=== PATIENT | female | born 1955 | race American Indian/Alaskan Native ===

== ENCOUNTER 2021-04-21 20:06 | Observation (INO) | payer MEDICARE ==
[2021-04-21] MEDS ORDERED: ASPIRIN 325 MG TAB PO ONE (22:26)
--- NOTE | 2021-04-21 23:35 | XRay Report ---
CHEST 2 VIEWS INDICATION / CLINICAL INFORMATION: chest pain. COMPARISON: None available. FINDINGS: SUPPORT DEVICES: Left central line projects over the superior vena cava. HEART / MEDIASTINUM: No significant abnormality. LUNGS / PLEURA: No significant pulmonary or pleural abnormality. No pneumothorax. ADDITIONAL FINDINGS: No significant additional findings. IMPRESSION: 1. No acute findings. Signer Name: Zenobia Jo MD Signed: 04/21/2021 11:31 PM Workstation Name: [id number]
[2021-04-22 00:35] LABS: Basophils % (Auto) 0.5 % (0.0-1.8); Eosinophils # (Auto) 0.2 K/mm3 (0.0-0.4); Eosinophils % (Auto) 3.2 % (0.0-4.3); Hematocrit 27.8 % (30.3-42.9); Hemoglobin 9.6 gm/dl (10.1-14.3); Lymphocytes % (Auto) 16.4 % (13.4-35.0); Mean Corpuscular HGB Conc 35 % (30-34); Mean Corpuscular Volume 105 fl (79-97); Monocytes # (Auto) 0.4 K/mm3 (0.0-0.8); Monocytes % (Auto) 6.3 % (0.0-7.3); Platelet Count 334 K/mm3 (140-440); Red Blood Count 2.64 M/mm3 (3.65-5.03); Red Cell Distribution Width 19.6 % (13.2-15.2)
[2021-04-22 00:48] LABS: INR 1.13 (0.87-1.13)
[2021-04-22 00:49] LABS: Partial Thromboplastin Time 35.9 Sec. (24.2-36.6)
[2021-04-22 00:54] LABS: Albumin 3.2 g/dL (3.9-5); Calcium 9.2 mg/dL (8.4-10.2)
[2021-04-22] MEDS ORDERED: ACETAMINOPHEN 500 MG TAB PO ONE (01:56)
[2021-04-22 03:17] LABS: Chol/HDL Ratio 3.59 %
[2021-04-22] MEDS ORDERED: SODIUM CHLORIDE 0.9% 1000 ML 1,000 ML IV ONE (06:09)
[2021-04-22] MEDS ORDERED: PANTOPRAZOLE 40 MG INJ IV ONE (06:09)
[2021-04-22 06:31] LABS: Hematocrit 27.1 % (30.3-42.9); Hemoglobin 8.9 gm/dl (10.1-14.3)
[2021-04-22] MEDS ORDERED: VANCOMYCIN 1,250 MG in SODIUM CHLORIDE 0.9% 250ML 250 ML IV ONE (06:33)
[2021-04-22] MEDS ORDERED: cefTRIAXone/NS 2 GM/100 ML 2 GM/100 ML BAG IV ONE (06:34)
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
[2021-04-22] MEDS ORDERED: SODIUM CHLORIDE 0.9% 500 ML 500 ML IV ONE (06:55)
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
[2021-04-22] MEDS ORDERED: NALOXONE 0.4 MG/1 ML INJ IV PRN (08:34)
[2021-04-22] MEDS ORDERED: ACETAMINOPHEN 325 MG TAB PO PRN (08:34)
[2021-04-22] MEDS ORDERED: DEXTROSE 50% IN WATER (25GM) 50 ML SYRINGE IV PRN (08:34)
[2021-04-22] MEDS ORDERED: oxyCODONE /ACETAMINOPHEN 5-325MG TAB PO PRN (08:34)
[2021-04-22] MEDS ORDERED: ONDANSETRON 4 MG/2 ML INJ IV PRN (08:34)
--- NOTE | 2021-04-22 08:37 | History and Physical Report ---
History of Present Illness Date of examination: 04/22/21 Date of admission: 04/22/21 Chief complaint: Black tarry stool. No light at home for wound vac History of present illness: Patient is a 65-year-old female with history of hypertension, Recent COVID 19 placed on on Xarelto, COPD, JAYJAY, history of anemia, and DM 2 with a recent left diabetic heel ulcer status post surgical debridement 1.5 weeks ago presents at the advice of her wound care nurse for inability to care for self and also unable to use her Wound vac as She says that yesterday her electricity/lights were turned off at her home. Her hx is all over the place. Per ED notes "Her nurse saw her yesterday to apply a wound VAC and told her that she needs to go to the hospital given that she cannot care for herself in her home without electricity. She says she is on oral antibiotics but does not remember the name. When prompted further, she says that she has been experiencing intermittent palpitations for the last week. For the past 2 or 3 days she has had dark tarry stools. Other than the palpitations and noticing dark tarry stools she denies any other symptoms or complaints including fever/chills, headache, vision change, neck pain, chest pain, shortness of breath, cough, diaphoresis, abdominal pain, nausea/vomiting, dysuria, back pain, focal weakness, sensory changes, or any other complaints. She denies any recent new redness to her left lower extremity wound/foot." I spoke with the home health nurse who says the patient does have history of anemia secondary to blood loss. The patient also tells me that she was started on iron pills recently. Both her know the nurse early childhood teacher assistant at home could tell me she has had an endoscopy before. Review of her records from [place] shows that she was admitted for right PICC line pain as well as not feeling well and worsening blurry vision and left leg swelling. During the hospitalization she was diagnosed with COVID-19 and was treated with steroids. Left lower extremity wound where she had a debridement and a partial calcanectomy done 03/27/2021. She was treated for hypoxic respiratory failure and also Covid related hypercoagulab le state for which she was suspected to be on Xarelto for 7 days. During hospitalization the patient was noted to have D-dimers that were consistently below 3000 per the note. During her process in the ER she did report that she had some dark stools. Per the ER doctors documentation rectal exam which was done under viscose department worker was negative. But patient was noted to be anemic with an almost 1 g drop in hemoglobin while in the ER. We been asked to admit the patient for further evaluation and management. Past History Past Medical History: CAD, COPD, diabetes, hypertension, hyperlipidemia, hypothyroidism, other (jayjay, Left lower ext osteomylitis, anxiety, MDD) Past Surgical History: Other (left foot debridement and calcanectomy) Social history: , lives with family, full code Family history: no significant family history Medications and Allergies Allergies Allergy/AdvReac Type Severity Reaction Status Date / Time bees Allergy Unknown Uncoded 04/21/21 22:23 ants AdvReac Unknown Uncoded 04/21/21 22:23 Review of Systems All systems: negative Constitutional: fatigue, lethargy Musculoskeletal: other (LEFT FOOT ULCER PAIN) Integumentary: redness, wounds (LEFT FOOT) Exam - Physical Exam Narrative exam: VITAL SIGNS: Reviewed. GENERAL: The patient appears normally developed, Vital signs as documented. HEAD: No signs of head trauma. EYES: Pupils are equal. Extraocular motions intact. EARS: Hearing grossly intact. MOUTH: Oropharynx is normal. NECK: No adenopathy, no JVD. CHEST: Chest with clear breath sounds bilaterally. No wheezes, rales, or rhonchi. CARDIAC: Regular rate and rhythm. S1 and S2, without murmurs, gallops, or rubs. VASCULAR: No Edema. Peripheral pulses normal and equal in all extremities. ABDOMEN: Soft, non tender and non distended. No rebound or guarding, and no masses palpated. Bowel Sounds normal. MUSCULOSKELETAL: Good range of motion of all major joints. Extremities without clubbing, cyanosis. Patient does have edema to the left lower extremity with chronic changes to the left lower extremity there is a large 5 cm wound at the base of the heel of the left foot. Dressing over the ankle. NEUROLOGIC EXAM: Alert and oriented x 3 No focal sensory or strength deficit s. Speech normal. Follows commands. PSYCHIATRIC: Mood normal. SKIN: detail exam as documented in skin assessment - Constitutional Vitals: Temp Pulse Resp BP Pulse Ox 97.3 F L 95 H 16 139/98 96 04/21/21 22:23 04/22/21 07:31 04/22/21 07:31 04/22/21 07:31 04/22/21 07:31 HEART Score - HEART Score Troponin: Troponin T 0.035 ng/mL (0.00-0.029) H 04/22/21 04:27 Results - Labs CBC & Chem 7: 04/22/21 06:19 04/22/21 00:00 Labs: Laboratory Last Values WBC 6.4 K/mm3 (4.5-11.0) 04/22/21 00:00 RBC 2.64 M/mm3 (3.65-5.03) L 04/22/21 00:00 Hgb 8.9 gm/dl (10.1-14.3) L 04/22/21 06:19 Hct 27.1 % (30.3-42.9) L 04/22/21 06:19 MCV 105 fl (79-97) H 04/22/21 00:00 MCH 37 pg (28-32) H 04/22/21 00:00 MCHC 35 % (30-34) H 04/22/21 00:00 RDW 19.6 % (13.2-15.2) H 04/22/21 00:00 Plt Count 334 K/mm3 (140-440) 04/22/21 00:00 Lymph % (Auto) 16.4 % (13.4-35.0) 04/22/21 00:00 [place] % (Auto) 6.3 % (0.0-7.3) 04/22/21 00:00 Eos % (Auto) 3.2 % (0.0-4.3) 04/22/21 00:00 Baso % (Auto) 0.5 % (0.0-1.8) 04/22/21 00:00 Lymph # (Auto) 1.0 K/mm3 (1.2-5.4) L 04/22/21 00:00 [place] # (Auto) 0.4 K/mm3 (0.0-0.8) 04/22/21 00:00 Eos # (Auto) 0.2 K/mm3 (0.0-0.4) 04/22/21 00:00 Baso # (Auto) 0.0 K/mm3 (0.0-0.1) 04/22/21 00:00 Seg Neutrophils % 73.6 % (40.0-70.0) H 04/22/21 00:00 Seg Neutrophils # 4.7 K/mm3 (1.8-7.7) 04/22/21 00:00 PT 15.0 Sec. (12.2-14.9) H 04/22/21 00:00 INR 1.13 (0.87-1.13) 04/22/21 00:00 APTT 35.9 Sec. (24.2-36.6) 04/22/21 00:00 Sodium 133 mmol/L (137-145) L 04/22/21 00:00 Potassium 4.6 mmol/L (3.6-5.0) 04/22/21 00:00 Chloride 93.9 mmol/L (98-107) L 04/22/21 00:00 Carbon Dioxide 26 mmol/L (22-30) 04/22/21 00:00 Anion Gap 18 mmol/L 04/22/21 00:00 BUN 22 mg/dL (7-17) H 04/22/21 00:00 Creatinine 1.1 mg/dL (0.6-1.2) 04/22/21 00:00 Estimated GFR 50 ml/min 04/22/21 00:00 BUN/Creatinine Ratio 20 % 04/22/21 00:00 Glucose 434 mg/dL (65-100) H 04/22/21 00:00 Calcium 9.2 mg/dL (8.4-10.2) 04/22/21 00:00 Magnesium 2.00 mg/dL (1.7-2.3) 04/22/21 06:19 Total Bilirubin 0.40 mg/dL (0.1-1.2) 04/22/21 00:00 AST 19 units/L (5-40) 04/22/21 00:00 ALT 15 units/L (7-56) 04/22/21 00:00 Alkaline Phosphatase 129 units/L (35-129) 04/22/21 00:00 Troponin T 0.035 ng/mL (0.00-0.029) H 04/22/21 04:27 Total Protein 7.7 g/dL (6.3-8.2) 04/22/21 00:00 Albumin 3.2 g/dL (3.9-5) L 04/22/21 00:00 Albumin/Globulin Ratio 0.7 % 04/22/21 00:00 Triglycerides 141 mg/dL (2-149) 04/22/21 02:05 Cholesterol 151 mg/dL (50-199) 04/22/21 02:05 LDL Cholesterol Direct 96 mg/dL (50-130) 04/22/21 02:05 HDL Cholesterol 42 mg/dL (40-59) 04/22/21 02:05 Cholesterol/HDL Ratio 3.59 % 04/22/21 02:05 Lipase 31 units/L (13-60) 04/22/21 06:19 Plasma/Serum Alcohol < 0.01 % (0-0.07) 04/22/21 06:19 Blood Type A POSITIVE 04/22/21 00:00 Antibody Screen Negative 04/22/21 00:00 Assessment and Plan Assessment and plan: Patient is a 65-year-old female with history of hypertension, Recent COVID 19 placed on on Xarelto, COPD, JAYJAY, history of anemia, and DM 2 with a recent left diabetic heel ulcer status post surgical debridement 1.5 weeks ago presents at the advice of her wound care nurse for inability to care for self and also unable to use her Wound vac as She says that yesterday her electricity/lights were turned off at her home. Her hx is all over the place. Per ED notes "Her nurse saw her yesterday to apply a wound VAC and told her that she needs to go to the hospital given that she cannot care for herself in her home without electricity. She says she is on oral antibiotics but does not remember the name. When prompted further, she says that she has been experiencing intermittent palpitations for the last week. For the past 2 or 3 days she has had dark tarry stools. Other than the palpitations and noticing dark tarry stools she denies any other symptoms or complaints including fever/chills, headache, vision change, neck pain, chest ugo n, shortness of breath, cough, diaphoresis, abdominal pain, nausea/vomiting, dysuria, back pain, focal weakness, sensory changes, or any other complaints. She denies any recent new redness to her left lower extremity wound/foot." I spoke with the home health nurse who says the patient does have history of anemia secondary to blood loss. The patient also tells me that she was started on iron pills recently. Both her know the nurse early childhood teacher assistant at home could tell me she has had an endoscopy before. Review of her records from [place] shows that she was admitted for right PICC line pain as well as not feeling well and worsening blurry vision and left leg swelling. During the hospitalization she was diagnosed with COVID-19 and was treated with steroids. Left lower extremity wound where she had a debridement and a partial calcanectomy done 03/27/2021. She was treated for hypoxic respiratory failure and also Covid related hypercoagulable state for which she was suspected to be on Xarelto for 7 days. During hospitalization the patient was noted to have D-dimers that were consistently below 3000 per the note. During her process in the ER she did report that she had some dark stools. Per the ER doctors documentation rectal exam which was done under viscose department worker was negative. But patient was noted to be anemic with an almost 1 g drop in hemoglobin while in the ER. We been asked to admit the patient for further evaluation and management. Diabetic foot ulcer with osteomyelitis of the left foot Diabetes mellitus with hyperglycemia Anemia questionable recent GI bleed Social issues including-no electricity at home preventing the use of wound VAC Hypertension Hyperlipidemia JAYJAY unknown if patient is on CPAP at home Recent Covid pneumonia with hypoxic respiratory failure the latter now resolved Hypothyroidism Anemia of chronic inflammation Constipation Hyperlipidemia GERD MDD/anxiety Plan Admit to [facility] as patient has history of recent Covid Isolation with Covid Continue insulin management with diabetes Discussed with nursing staff to obtain home medication list I have been able to see some medication from [place] and will restart dose Continue Synthroid we will hold Xarelto at this time Cardiology consultation they were very instrumental in obtaining this record from [place] to identify the patient did not have a history of A. fib GI consulted anticipating endoscopy in a.m. We will redo Covid testing [employer] worker/case management consulted to assist with social issues noted above Wound care consult Reapply wound VAC Monitor H&H DVT and GI prophylaxis Plan discussed with the patient in detail Advance Directives: Yes Plan of care discussed with patient/family: Yes
[2021-04-22] MEDS: SENNOSIDES 8.6 MG TAB PO SCH ×2 (09:47→23:54)
[2021-04-22] MEDS: INSULIN LISPRO 100 UNIT/ML SUB-Q SCH ×3 (09:47→18:04)
[2021-04-22] MEDS ORDERED: PANTOPRAZOLE 40 MG INJ IV SCH (10:00)
--- NOTE | 2021-04-22 11:19 | Consultation ---
History of Present Illness Consult date: 04/22/21 Consult reason: atrial fibrillation History of present illness: This is a 65-year old woman with a history of Insulin dependent diabetes mellitus with a left diabetic heel ulcer, chronic osteomyelitis and is status post surgical debridement 3 weeks ago at [place]. Review of records shows that during her hospitalization at [place], she test positive for COVID. CT scan was negative for PE but on discharged she was prescribed a short course of Xarelto for prophylaxis. Co-morbidities includes chronic anemia, and hypothyroidism. There is no prior cardiac history. An echocardiogram done a year ago reports a well preserved left ventricular systolic function, ejection fraction 50-55%. Patient states yesterday her home health nurse came out for wound care but was found to have no electricity or food. The home health nurse recommended the patient go to the emergency department given her social issues and inability to care for herself. Initial labs shows uncontrolled diabetes, glucose 434. HCT 27.1 and mild elevation of troponin. There are no complaints of chest pain, no unusual shortness of breath, and no palpitations. An ECG is mild sinus tachycardia with LVH. There is no evidence of atrial fibrillation. Past History Past Medical History: anemia, diabetes, hypertension, hypothyroidism Past Surgical History: Other (left heel ulcer s/p debridement) Medications and Allergies Allergies Allergy/AdvReac Type Severity Reaction Status Date / Time bees Allergy Unknown Uncoded 04/21/21 22:23 ants AdvReac Unknown Uncoded 04/21/21 22:23 Active Meds: Active Medications Acetaminophen (Acetaminophen 325 Mg Tab) 650 mg PO Q4H PRN PRN Reason: Pain MILD(1-3)/Fever >100.5/REYES Dextrose (Dextrose 50% In Water (25gm) 50 Ml Syringe) 50 ml IV Q30MIN PRN; Protocol PRN Reason: Hypoglycemia Insulin Human Lispro (Insulin Lispro 100 Unit/Ml) 0 unit SUB-Q Q6HR ON LICENSE OF [facility]; Protocol Last Admin: 04/22/21 09:47 Dose: 8 unit Documented by: Naloxone HCl (Naloxone 0.4 Mg/1 Ml Inj) 0.1 mg IV Q2MIN PRN PRN Reason: Res Rate </= 8 or 02 SAT < 92% Ondansetron HCl (Ondansetron 4 Mg/2 Ml Inj) 4 mg IV Q8H PRN PRN Reason: Nausea And Vomiting Oxycodone/Acetaminophen (Oxycodone /Acetaminophen 5-325mg Tab) 1 tab PO Q6H PRN PRN Reason: Pain, Moderate (4-6) Pantoprazole Sodium (Pantoprazole 40 Mg Inj) 40 mg IV BID ON LICENSE OF [facility] Senna (Sennosides 8.6 Mg Tab) 8.6 mg PO Q12HR ON LICENSE OF [facility] Last Admin: 04/22/21 09:47 Dose: 8.6 mg Documented by: Sodium Chloride (Sodium Chloride 0.9% 10 Ml Flush Syringe) 10 ml IV BID ON LICENSE OF [facility] Last Admin: 04/22/21 09:40 Dose: 10 ml Documented by: Sodium Chloride (Sodium Chloride 0.9% 10 Ml Flush Syringe) 10 ml IV PRN PRN PRN Reason: LINE FLUSH Review of Systems Cardiovascular: no chest pain, no palpitations, no shortness of breath Physical Examination Vital Signs Temp Pulse Resp BP Pulse Ox 97.3 F L 130 H 22 96/53 95 04/21/21 22:23 04/21/21 22:23 04/21/21 22:23 04/21/21 22:23 04/21/21 22:23 General appearance: no acute distress HEENT: Positive: PERRL Neck: Positive: trachea midline Cardiac: Positive: Reg Rate and Rhythm Lungs: Positive: Decreased Breath Sounds Neuro: Positive: Grossly Intact Extremities: Present: Other (left heel ulcer) Results 04/22/21 06:19 04/22/21 00:00 Cardiac Enzymes 04/22/21 Range/Units 00:00 AST 19 (5-40) units/L Coagulation 04/22/21 Range/Units 00:00 PT 15.0 H (12.2-14.9) Sec. INR 1.13 (0.87-1.13) APTT 35.9 (24.2-36.6) Sec. Lipids 04/22/21 Range/Units 02:05 Triglycerides 141 (2-149) mg/dL Cholesterol 151 (50-199) mg/dL HDL Cholesterol 42 (40-59) mg/dL Cholesterol/HDL Ratio 3.59 % CBC 04/22/21 04/22/21 Range/Units 00:00 06:19 WBC 6.4 (4.5-11.0) K/mm3 RBC 2.64 L (3.65-5.03) M/mm3 Hgb 9.6 L 8.9 L (10.1-14.3) gm/dl Hct 27.8 L 27.1 L (30.3-42.9) % Plt Count 334 (140-440) K/mm3 Lymph # (Auto) 1.0 L (1.2-5.4) K/mm3 [place] # (Auto) 0.4 (0.0-0.8) K/mm3 Eos # (Auto) 0.2 (0.0-0.4) K/mm3 Baso # (Auto) 0.0 (0.0-0.1) K/mm3 Comprehensive Metabolic Panel 04/22/21 Range/Units 00:00 Sodium 133 L (137-145) mmol/L Potassium 4.6 (3.6-5.0) mmol/L Chloride 93.9 L (98-107) mmol/L Carbon Dioxide 26 (22-30) mmol/L BUN 22 H (7-17) mg/dL Creatinine 1.1 (0.6-1.2) mg/dL Glucose 434 H (65-100) mg/dL Calcium 9.2 (8.4-10.2) mg/dL AST 19 (5-40) units/L ALT 15 (7-56) units/L Alkaline Phosphatase 129 (35-129) units/L Total Protein 7.7 (6.3-8.2) g/dL Albumin 3.2 L (3.9-5) g/dL Assessment and Plan - Patient Problems (1) Diabetic ulcer of left foot Current Visit: Yes Status: Acute
[2021-04-22] MEDS ORDERED: cefTRIAXone/NS 2 GM/100 ML 2 GM/100 ML BAG IV SCH ×2 (15:00)
[2021-04-22 15:07] LABS: C-Reactive Protein 10.6 mg/dL (0.00-1.30)
[2021-04-22 15:10] LABS: Hematocrit 26.8 % (30.3-42.9); Hemoglobin 8.8 gm/dl (10.1-14.3)
[2021-04-22] MEDS: LATANOPROST 0.005% OPHTH SOLN 2.5 ML OU SCH (18:07)
--- NOTE | 2021-04-22 18:10 | Electrocardiograph Report ---
[facility] Test Date: 2021-04-21 Test Time: 22:41:58 Pat Name: KAILEY FOFANA Department: Room: [facility] Gender: F Bridge Worker: HAWK : 1955 Requested By: INDIRA GARCIA Order Number: [id number] Reading MD: Narciso Bazzi Measurements Intervals [place] Rate: 122 P: 60 CA: 136 QRS: 3 QRSD: 80 T: 80 QT: 334 QTc: 476 Interpretive Statements Sinus tachycardia Probable LVH with secondary repol abnrm No previous ECG available for comparison Electronically Signed On 04-22-2021 18:10:02 EDT by Narciso Bazzi
[2021-04-22] MEDS ORDERED: CALCIUM CARBONATE/VITAMIN D3 500 MG-200 UNIT TAB PO SCH (22:00)
[2021-04-22] MEDS: PANTOPRAZOLE 40 MG INJ IV SCH (23:54)
[2021-04-23] MEDS: CALCIUM CARBONATE/VITAMIN D3 500 MG-200 UNIT TAB PO SCH ×3 (00:03→22:14)
[2021-04-23 05:39] LABS: Basophils % (Auto) 0.6 % (0.0-1.8); Eosinophils # (Auto) 0.2 K/mm3 (0.0-0.4); Eosinophils % (Auto) 2.9 % (0.0-4.3); Hematocrit 27.6 % (30.3-42.9); Hemoglobin 9.2 gm/dl (10.1-14.3); Lymphocytes # (Auto) 1.2 K/mm3 (1.2-5.4); Lymphocytes % (Auto) 21.8 % (13.4-35.0); Mean Corpuscular HGB Conc 33 % (30-34); Mean Corpuscular Volume 103 fl (79-97); Monocytes # (Auto) 0.3 K/mm3 (0.0-0.8); Monocytes % (Auto) 5.6 % (0.0-7.3); Platelet Count 294 K/mm3 (140-440); Red Blood Count 2.69 M/mm3 (3.65-5.03); Red Cell Distribution Width 18.6 % (13.2-15.2)
[2021-04-23 06:05] LABS: Alanine Aminotransferase 15 units/L (7-56); Albumin 3.3 g/dL (3.9-5); BUN/Creatinine Ratio 24; Blood Urea Nitrogen 19 mg/dL (7-17); Calcium 9.9 mg/dL (8.4-10.2); Hemolysis Index 46
--- NOTE | 2021-04-23 09:14 | Progress Note ---
Assessment and Plan Diabetes Chronic anemia Chronic diabetic left foot ulcer with chronic osteomyelitis Recommendations: No evident atrial fibrillation. Conservative cardiac management. Subjective Date of service: 04/23/21 Interval history: No cardiac complaints. Awaits COVID 19 serology. Objective Vital Signs Temp Pulse Resp BP Pulse Ox 04/23/21 09:02 99 04/22/21 17:13 98.1 F 70 20 144/99 98 04/22/21 09:24 97 H 19 153/91 98 - Physical Examination Narrative exam: Deferred due to isolation protocol. General: No Apparent Distress Cardiac: Positive: Reg Rate and Rhythm Extremities: Present: Other (left heel ulcer) - Labs and Meds Cardiac Enzymes 04/22/21 04/23/21 Range/Units 14:20 03:49 AST 27 (5-40) units/L Lactate Dehydrogenase 323 H (91-180) units/L CBC 04/22/21 04/23/21 Range/Units 14:20 03:49 WBC 5.5 (4.5-11.0) K/mm3 RBC 2.69 L (3.65-5.03) M/mm3 Hgb 8.8 L 9.2 L (10.1-14.3) gm/dl Hct 26.8 L 27.6 L (30.3-42.9) % Plt Count 294 (140-440) K/mm3 Lymph # (Auto) 1.2 (1.2-5.4) K/mm3 [place] # (Auto) 0.3 (0.0-0.8) K/mm3 Eos # (Auto) 0.2 (0.0-0.4) K/mm3 Baso # (Auto) 0.0 (0.0-0.1) K/mm3 Comprehensive Metabolic Panel 04/22/21 04/23/21 Range/Units 14:20 03:49 Sodium 137 (137-145) mmol/L Potassium 4.7 (3.6-5.0) mmol/L Chloride 97.1 L (98-107) mmol/L Carbon Dioxide 30 (22-30) mmol/L BUN 19 H (7-17) mg/dL Creatinine 0.8 (0.6-1.2) mg/dL Glucose 207 H 229 H (65-100) mg/dL Calcium 9.9 (8.4-10.2) mg/dL AST 27 (5-40) units/L ALT 15 (7-56) units/L Alkaline Phosphatase 137 H (35-129) units/L Total Protein 8.4 H (6.3-8.2) g/dL Albumin 3.3 L (3.9-5) g/dL
[2021-04-23] MEDS: SENNOSIDES 8.6 MG TAB PO SCH ×2 (10:16→22:14)
[2021-04-23] MEDS: FOLIC ACID 1 MG TAB PO SCH (10:16)
[2021-04-23] MEDS: FLUoxetine 20 MG CAP PO SCH (10:16)
[2021-04-23] MEDS: CHOLECALCIFEROL (VIT D3) 1000 UNIT (25 mcg) TAB PO SCH (10:16)
--- NOTE | 2021-04-23 10:59 | Consultation ---
History of Present Illness Consult date: 04/23/21 Chief complaint: Left heel ulcer - History of present illness History of present illness: 65 yo non-ambulatory diabetic with chronic left heel ulcer. Pt is a non-smoker. Past History Past Medical History: CAD, COPD, diabetes, hypertension, hyperlipidemia, hypothyroidism, other (ekaterina, Left lower ext osteomylitis, anxiety, MDD) Past Surgical History: Other (left foot debridement and calcanectomy) Social history: , lives with family, full code Family history: no significant family history Medications and Allergies Allergies Allergy/AdvReac Type Severity Reaction Status Date / Time bees Allergy Unknown Uncoded 04/21/21 22:23 ants AdvReac Unknown Uncoded 04/21/21 22:23 Active Meds: Active Medications Acetaminophen (Acetaminophen 325 Mg Tab) 650 mg PO Q4H PRN PRN Reason: Pain MILD(1-3)/Fever >100.5/REYES Aspirin (Aspirin 81 Mg Tab Chew) 81 mg PO QDAY [facility] Atorvastatin Calcium (Atorvastatin 40 Mg Tab) 40 mg PO QHS [facility] Last Admin: 04/22/21 23:54 Dose: 40 mg Documented by: Calcium/Vitamin D (Calcium Carbonate/Vitamin D3 500 Mg-200 Unit Tab) 1 each PO BID [facility] Last Admin: 04/23/21 10:16 Dose: Not Given Documented by: Cholecalciferol (Cholecalciferol (Vit D3) 1000 Unit (25 Mcg) Tab) 1,000 unit PO QDAY [facility] Last Admin: 04/23/21 10:16 Dose: Not Given Documented by: Dextrose (Dextrose 50% In Water (25gm) 50 Ml Syringe) 50 ml IV Q30MIN PRN; Protocol PRN Reason: Hypoglycemia Fluoxetine HCl (Fluoxetine 20 Mg Cap) 20 mg PO QDAY [facility] Last Admin: 04/23/21 10:16 Dose: Not Given Documented by: Folic Acid (Folic Acid 1 Mg Tab) 1 mg PO QDAY [facility] Last Admin: 04/23/21 10:16 Dose: Not Given Documented by: Ceftriaxone Sodium (Rocephin/Ns 2 Gm/100 Ml) 2 gm in 100 mls @ 200 mls/hr IV Q24H [facility]; Protocol Insulin Human Lispro (Insulin Lispro 100 Unit/Ml) 0 unit SUB-Q Q6HR [facility]; Protocol Last Admin: 04/22/21 18:04 Dose: Not Given Documented by: Latanoprost (Latanoprost 0.005% Ophth Soln 2.5 Ml) 1 drops OU QPM [facility] Last Admin: 04/22/21 18:07 Dose: 1 drops Documented by: Naloxone HCl (Naloxone 0.4 Mg/1 Ml Inj) 0.1 mg IV Q2MIN PRN PRN Reason: Res Rate </= 8 or 02 SAT < 92% Ondansetron HCl (Ondansetron 4 Mg/2 Ml Inj) 4 mg IV Q8H PRN PRN Reason: Nausea And Vomiting Oxycodone/Acetaminophen (Oxycodone /Acetaminophen 5-325mg Tab) 1 tab PO Q6H PRN PRN Reason: Pain, Moderate (4-6) Pantoprazole Sodium (Pantoprazole 40 Mg Inj) 40 mg IV BID [facility] Last Admin: 04/22/21 23:54 Dose: 40 mg Documented by: Senna (Sennosides 8.6 Mg Tab) 8.6 mg PO Q12HR [facility] Last Admin: 04/23/21 10:16 Dose: Not Given Documented by: Sodium Chloride (Sodium Chloride 0.9% 10 Ml Flush Syringe) 10 ml IV BID [facility] Last Admin: 04/22/21 23:54 Dose: 10 ml Documented by: Sodium Chloride (Sodium Chloride 0.9% 10 Ml Flush Syringe) 10 ml IV PRN PRN PRN Reason: LINE FLUSH Review of Systems All systems: negative (none) Exam Vital Signs Temp Pulse Resp BP Pulse Ox 97.3 F L 130 H 22 96/53 95 04/21/21 22:23 04/21/21 22:23 04/21/21 22:23 04/21/21 22:23 04/21/21 22:23 - General physical appearance Positive: well developed, well nourished, no distress - Eyes Positive: PERRL, normal occular movement - ENT Positive: normal pinna, normal nares, normal mucosa, no hearing loss, no congestion - Neck Positive: no masses, no bruits, trachea midline, no venous distension - Respiratory Positive: normal expansion, normal respiratory effort, clear to auscultation - Cardiovascular Rhythm: regular Heart Sounds: Present: S1 & S2. Absent: rub, click - Extremities Extremities: no ischemia, pulses symmetrical, No edema - Breasts Breasts: normal, no mass, no skin changes - Abdomen Abdomen: Present: soft, bowel sounds normal. Absent: tender, distended Hernia: none - Genitourinary Male Genitourinary: normal Female Genitourinary: normal - Integumentary no rash, no growths, no abnormal pigmentation, other (There is a 6 X 4.5 X 1 cm ulcer of the left heel with nearly exposed calcaneus. The wound is fairly clean. Left DP is non-palpable.) - Neurologic Neurologic: alert and oriented to time, place and person, motor strength and sensation are grossly intact - Musculoskeletal normal gait, normal posture - Psychiatric Psychiatric: appropriate mood/affect, intact judgment & insight Results - Labs 04/23/21 03:49 04/23/21 03:49 Abnormal lab results 04/22/21 04/22/21 04/22/21 Range/Units 13:17 14:20 14:20 RBC (3.65-5.03) M/mm3 Hgb 8.8 L (10.1-14.3) gm/dl Hct 26.8 L (30.3-42.9) % MCV (79-97) fl MCH (28-32) pg RDW (13.2-15.2) % D-Dimer 1101.34 H (0-234) ng/mlDDU Chloride (98-107) mmol/L BUN (7-17) mg/dL Glucose (65-100) mg/dL POC Glucose 262 H (70-105) mg/dL Ferritin (10.0-200.0) ng/mL Alkaline Phosphatase (35-129) units/L Lactate Dehydrogenase (91-180) units/L C-Reactive Protein (0.00-1.30) mg/dL Total Protein (6.3-8.2) g/dL Albumin (3.9-5) g/dL 04/22/21 04/22/21 04/22/21 Range/Units 14:20 14:20 16:51 RBC (3.65-5.03) M/mm3 Hgb (10.1-14.3) gm/dl Hct (30.3-42.9) % MCV (79-97) fl MCH (28-32) pg RDW (13.2-15.2) % D-Dimer (0-234) ng/mlDDU Chloride (98-107) mmol/L BUN (7-17) mg/dL Glucose 207 H (65-100) mg/dL POC Glucose 195 H (70-105) mg/dL Ferritin 904.5 H (10.0-200.0) ng/mL Alkaline Phosphatase (35-129) units/L Lactate Dehydrogenase 323 H (91-180) units/L C-Reactive Protein 10.60 H (0.00-1.30) mg/dL Total Protein (6.3-8.2) g/dL Albumin (3.9-5) g/dL 04/23/21 04/23/21 04/23/21 Range/Units 03:49 03:49 04:32 RBC 2.69 L (3.65-5.03) M/mm3 Hgb 9.2 L (10.1-14.3) gm/dl Hct 27.6 L (30.3-42.9) % MCV 103 H (79-97) fl MCH 34 H (28-32) pg RDW 18.6 H (13.2-15.2) % D-Dimer (0-234) ng/mlDDU Chloride 97.1 L (98-107) mmol/L BUN 19 H (7-17) mg/dL Glucose 229 H (65-100) mg/dL POC Glucose 224 H (70-105) mg/dL Ferritin (10.0-200.0) ng/mL Alkaline Phosphatase 137 H (35-129) units/L Lactate Dehydrogenase (91-180) units/L C-Reactive Protein (0.00-1.30) mg/dL Total Protein 8.4 H (6.3-8.2) g/dL Albumin 3.3 L (3.9-5) g/dL Diabetes panel 04/22/21 04/23/21 Range/Units 14:20 03:49 Sodium 137 (137-145) mmol/L Potassium 4.7 (3.6-5.0) mmol/L Chloride 97.1 L (98-107) mmol/L Carbon Dioxide 30 (22-30) mmol/L BUN 19 H (7-17) mg/dL Creatinine 0.8 (0.6-1.2) mg/dL Glucose 207 H 229 H (65-100) mg/dL Calcium 9.9 (8.4-10.2) mg/dL AST 27 (5-40) units/L ALT 15 (7-56) units/L Alkaline Phosphatase 137 H (35-129) units/L Total Protein 8.4 H (6.3-8.2) g/dL Albumin 3.3 L (3.9-5) g/dL Calcium panel 04/23/21 Range/Units 03:49 Calcium 9.9 (8.4-10.2) mg/dL Albumin 3.3 L (3.9-5) g/dL Pituitary panel 04/22/21 04/23/21 Range/Units 14:20 03:49 Sodium 137 (137-145) mmol/L Potassium 4.7 (3.6-5.0) mmol/L Chloride 97.1 L (98-107) mmol/L Carbon Dioxide 30 (22-30) mmol/L BUN 19 H (7-17) mg/dL Creatinine 0.8 (0.6-1.2) mg/dL Glucose 207 H 229 H (65-100) mg/dL Calcium 9.9 (8.4-10.2) mg/dL Adrenal panel 04/22/21 04/23/21 Range/Units 14:20 03:49 Sodium 137 (137-145) mmol/L Potassium 4.7 (3.6-5.0) mmol/L Chloride 97.1 L (98-107) mmol/L Carbon Dioxide 30 (22-30) mmol/L BUN 19 H (7-17) mg/dL Creatinine 0.8 (0.6-1.2) mg/dL Glucose 207 H 229 H (65-100) mg/dL Calcium 9.9 (8.4-10.2) mg/dL Total Bilirubin 0.40 (0.1-1.2) mg/dL AST 27 (5-40) units/L ALT 15 (7-56) units/L Alkaline Phosphatase 137 H (35-129) units/L Total Protein 8.4 H (6.3-8.2) g/dL Albumin 3.3 L (3.9-5) g/dL Assessment and Plan - Patient Problems (1) Diabetic ulcer of left foot Current Visit: Yes Status: Acute Plan to address problem: 1) MRI of left foot with contrast 2) LLE arterial dopplers 3) Wound Care nurse consult 4) Strict diabetic control 5) Pt currently does not want to consider amputation even though she is non- ambulatory.
[2021-04-23] MEDS ORDERED: SODIUM CHLORIDE 0.9% 1000 ML 1,000 ML ONE (11:26)
[2021-04-23] MEDS: INSULIN LISPRO 100 UNIT/ML SUB-Q SCH ×5 (12:00→23:42)
[2021-04-23] MEDS ORDERED: propofoL 200 MG/20 ML VIAL IV ONE (12:22)
--- NOTE | 2021-04-23 12:42 | Operative Report ---
Operative Report Operative Report: DOS: 04/23/21 SURGEON: Temo Sanchez MD EGD with biopsy REPORT PREOPERATIVE DIAGNOSIS and POSTOPERATIVE DIAGNOSIS: Epigastric abdominal pain, melena ESTIMATED BLOOD LOSS: Minimal DESCRIPTION OF PROCEDURE: A high-resolution EGD scope was passed through the oropharynx, esophagus, stomach, and second portion of duodenum. The scope was carefully withdrawn. Retroflexion was performed in the stomach. At the end of the procedure, the scope was cleaned using normal technique. Vital signs monitored continuously throughout. SEDATION: Provided by Anesthesiology Services. COMPLICATIONS: None. FINDINGS: * No gross lesions of the entire examined duodenum * Moderate gastritis gastric antrum and body with erythema and edema. Biopsies were taken to rule out H. Pylori infection. A total of 5 biopsies were taken, 2 from the antrum, 1 from the incisura, 2 from the body. * GE junction located 35 cm from incisors * Remainder of exam unremarkable RECOMMENDATIONS: From GI standpoint as hemoglobin stabilized and benign EGD findings patient can be discharged I recommend continuing twice daily PPI while patient remains inpatient and then discharging on pantoprazole 40 mg once daily as an outpatient and she can follow-up with us regarding her biopsy results GI will sign off please call back if we can be of any further assistance
--- NOTE | 2021-04-23 12:53 | Vascular Lab Report ---
DUPLEX DOPPLER LOWER EXTREMITY ARTERIAL, LEFT INDICATION: Left heel ulcer. Left foot osteomyelitis. TECHNIQUE: Arterial duplex examination of the left lower extremity performed using B-mode, color flow and spectr al Doppler assessment. FINDINGS: LEFT: Common Femoral Artery: PSV 111 cm/sec. Triphasic waveform. Proximal SFA: PSV 105 cm/sec. Triphasic waveform. Mid SFA: PSV 108 cm/sec. Triphasic waveform. Distal SFA: PSV 94 cm/sec. Triphasic waveform. Popliteal artery: PSV 88 cm/sec. Biphasic waveform. Posterior tibial artery: PSV 75 cm/sec. Biphasic waveform. Dorsalis Pedis Artery: PSV 80 cm/sec. Biphasic waveform. IMPRESSION: No significant lower extremity peripheral artery disease. Left lower extremity arterial structures ar e patent with multiphasic waveforms. Doppler Waveform: * Triphasic is normal. * Biphasic is abnormal if clear transition from triphasic signal along vascular tree. * Monophasic is abnormal. Signer Name: Benito Masterson Jr, MD Signed: 04/23/2021 12:49 PM Workstation Name: [id number]
--- NOTE | 2021-04-23 13:06 | Progress Note ---
Assessment and Plan Assessment and plan: Patient is a 65-year-old female with history of hypertension, Recent COVID 19 placed on on Xarelto, COPD, JAYJAY, history of anemia, and DM 2 with a recent left diabetic heel ulcer status post surgical debridement 1.5 weeks ago presents at the advice of her wound care nurse for inability to care for self and also unable to use her Wound vac as She says that yesterday her electricity/lights were turned off at her home. Her hx is all over the place. Per ED notes "Her nurse saw her yesterday to apply a wound VAC and told her that she needs to go to the hospital given that she cannot care for herself in her home without electricity. She says she is on oral antibiotics but does not remember the name. When prompted further, she says that she has been experiencing intermittent palpitations for the last week. For the past 2 or 3 days she has had dark tarry stools. Other than the palpitations and noticing dark tarry stools she denies any other symptoms or complaints including fever/chills, headache, vision change, neck pain, chest pain, shortness of breath, cough, diaphoresis, abdominal pain, nausea/vomiting, dysuria, back pain, focal weakness, sensory changes, or any other complaints. She denies any recent new redness to her left lower extremity wound/foot." I spoke with the home health nurse who says the patient does have history of anemia secondary to blood loss. The patient also tells me that she was started on iron pills recently. Both her know the nurse registrar assistant at home could tell me she has had an endoscopy before. Review of her records from [facility] shows that she was admitted for right PICC line pain as well as not feeling well and worsening blurry vision and left leg swelling. During the hospitalization she was diagnosed with COVID-19 and was treated with steroids. Left lower extremity wound where she had a debridement and a partial calcanectomy done 03/27/2021. She was treated for hypoxic respiratory failure and also Covid related hypercoagulable state for which she was suspected to be on Xarelto for 7 days. During hospitalization the patient was noted to have D-dimers that were consistently below 3000 per the note. During her process in the ER she did report that she had some dark stools. Per the ER doctors documentation rectal exam which was done under biological chemist was negative. But patient was noted to be anemic with an almost 1 g drop in hemoglobin while in the ER. We been asked to admit the patient for further evaluation and management. Diabetic foot ulcer with osteomyelitis of the left foot Diabetes mellitus with hyperglycemia Anemia questionable recent GI bleed- Gastritis-Antrum, Social issues including-no electricity at home preventing the use of wound VAC Hypertension Hypokalemia Hyperlipidemia JAYJAY unknown if patient is on CPAP at home Recent Covid pneumonia with hypoxic respiratory failure the latter now resolved Hypothyroidism Anemia of chronic inflammation Constipation Hyperlipidemia GERD MDD/anxiety Plan Patient underwent EGD FINDINGS: * No gross lesions of the entire examined duodenum * Moderate gastritis gastric antrum and body with erythema and edema. Biopsies were taken to rule out H. Pylori infection. A total of 5 biopsies were taken, 2 from the antrum, 1 from the incisura, 2 from the body. * GE junction located 35 cm from incisors * Remainder of exam unremarkable * GI recommend continuing twice daily PPI while patient remains inpatient and then discharging on pantoprazole 40 mg once daily as an outpatient and she can follow-up with us regarding her biopsy results Surgery input noted, Follow MRI Place Wound vac, No wound care nurse in house at this time Discussed with case management, Placement will be ideal Isolation with Covid Continue insulin management with diabetes Discussed with nursing staff to obtain home medication list I have been able to see some medication from [facility] and will restart dose Continue Synthroid we will hold Xarelto at this time Cardiology consultation SEEN. NO afib. GI consulted anticipating endoscopy in a.m. We will redo Covid testing Accu-Dylan trim line worker/case management consulted to assist with social issues noted above Wound care consult Reapply wound VAC Monitor H&H DVT and GI prophylaxis Plan discussed with the patient in detail History Interval history: Patient seen and examined, resting comfortable, states light is back in the house, but she is unable to reach her leg. She has been non ambulatory for about 4 weeks Hospitalist Physical - Physical exam Narrative exam: VITAL SIGNS: Reviewed. GENERAL: The patient appears normally developed, Vital signs as documented. HEAD: No signs of head trauma. EYES: Pupils are equal. Extraocular motions intact. EARS: Hearing grossly intact. MOUTH: Oropharynx is normal. NECK: No adenopathy, no JVD. CHEST: Chest with clear breath sounds bilaterally. No wheezes, rales, or rhonchi. CARDIAC: Regular rate and rhythm. S1 and S2, without murmurs, gallops, or rubs. VASCULAR: No Edema. Peripheral pulses normal and equal in all extremities. ABDOMEN: Soft, non tender and non distended. No rebound or guarding, and no masses palpated. Bowel Sounds normal. MUSCULOSKELETAL: Good range of motion of all major joints. Extremities without clubbing, cyanosis. Patient does have edema to the left lower extremity with chronic changes to the left lower extremity there is a large 5 cm wound at the base of the heel of the left foot. Dressing over the ankle. NEUROLOGIC EXAM: Alert and oriented x 3 No focal sensory or strength deficits. Speech normal. Follows commands. PSYCHIATRIC: Mood normal. SKIN: detail exam as documented in skin assessment - Constitutional Vitals: Temp Pulse Resp BP Pulse Ox 98 F 109 H 20 116/64 96 04/23/21 12:13 04/23/21 12:13 04/23/21 12:13 04/23/21 12:13 04/23/21 12:13 General appearance: Present: no acute distress HEART Score - HEART Score Troponin: Troponin T 0.035 ng/mL (0.00-0.029) H 04/22/21 04:27 Results - Labs CBC & Chem 7: 04/23/21 03:49 04/23/21 03:49 Labs: Laboratory Last Values WBC 5.5 K/mm3 (4.5-11.0) 04/23/21 03:49 RBC 2.69 M/mm3 (3.65-5.03) L 04/23/21 03:49 Hgb 9.2 gm/dl (10.1-14.3) L 04/23/21 03:49 Hct 27.6 % (30.3-42.9) L 04/23/21 03:49 MCV 103 fl (79-97) H 04/23/21 03:49 MCH 34 pg (28-32) H 04/23/21 03:49 MCHC 33 % (30-34) 04/23/21 03:49 RDW 18.6 % (13.2-15.2) H 04/23/21 03:49 Plt Count 294 K/mm3 (140-440) 04/23/21 03:49 Lymph % (Auto) 21.8 % (13.4-35.0) 04/23/21 03:49 [place] % (Auto) 5.6 % (0.0-7.3) 04/23/21 03:49 Eos % (Auto) 2.9 % (0.0-4.3) 04/23/21 03:49 Baso % (Auto) 0.6 % (0.0-1.8) 04/23/21 03:49 Lymph # (Auto) 1.2 K/mm3 (1.2-5.4) 04/23/21 03:49 [place] # (Auto) 0.3 K/mm3 (0.0-0.8) 04/23/21 03:49 Eos # (Auto) 0.2 K/mm3 (0.0-0.4) 04/23/21 03:49 Baso # (Auto) 0.0 K/mm3 (0.0-0.1) 04/23/21 03:49 Seg Neutrophils % 69.1 % (40.0-70.0) 04/23/21 03:49 Seg Neutrophils # 3.8 K/mm3 (1.8-7.7) 04/23/21 03:49 PT 15.0 Sec. (12.2-14.9) H 04/22/21 00:00 INR 1.13 (0.87-1.13) 04/22/21 00:00 APTT 35.9 Sec. (24.2-36.6) 04/22/21 00:00 D-Dimer 1101.34 ng/mlDDU (0-234) H 04/22/21 14:20 Sodium 137 mmol/L (137-145) 04/23/21 03:49 Potassium 4.7 mmol/L (3.6-5.0) 04/23/21 03:49 Chloride 97.1 mmol/L (98-107) L 04/23/21 03:49 Carbon Dioxide 30 mmol/L (22-30) 04/23/21 03:49 Anion Gap 15 mmol/L 04/23/21 03:49 BUN 19 mg/dL (7-17) H 04/23/21 03:49 Creatinine 0.8 mg/dL (0.6-1.2) 04/23/21 03:49 Estimated GFR > 60 ml/min 04/23/21 03:49 BUN/Creatinine Ratio 24 % 04/23/21 03:49 Glucose 229 mg/dL (65-100) H 04/23/21 03:49 POC Glucose 246 mg/dL (70-105) H 04/23/21 10:59 Calcium 9.9 mg/dL (8.4-10.2) 04/23/21 03:49 Magnesium 2.00 mg/dL (1.7-2.3) 04/22/21 06:19 Ferritin 904.5 ng/mL (10.0-200.0) H 04/22/21 14:20 Total Bilirubin 0.40 mg/dL (0.1-1.2) 04/23/21 03:49 AST 27 units/L (5-40) 04/23/21 03:49 ALT 15 units/L (7-56) 04/23/21 03:49 Alkaline Phosphatase 137 units/L (35-129) H 04/23/21 03:49 Lactate Dehydrogenase 323 units/L (91-180) H 04/22/21 14:20 Troponin T 0.035 ng/mL (0.00-0.029) H 04/22/21 04:27 C-Reactive Protein 10.60 mg/dL (0.00-1.30) H 04/22/21 14:20 Total Protein 8.4 g/dL (6.3-8.2) H 04/23/21 03:49 Albumin 3.3 g/dL (3.9-5) L 04/23/21 03:49 Albumin/Globulin Ratio 0.6 % 04/23/21 03:49 Triglycerides 141 mg/dL (2-149) 04/22/21 02:05 Cholesterol 151 mg/dL (50-199) 04/22/21 02:05 LDL Cholesterol Direct 96 mg/dL (50-130) 04/22/21 02:05 HDL Cholesterol 42 mg/dL (40-59) 04/22/21 02:05 Cholesterol/HDL Ratio 3.59 % 04/22/21 02:05 Lipase 31 units/L (13-60) 04/22/21 06:19 Procalcitonin 0.07 ng/mL (<0.15) 04/22/21 14:20 Plasma/Serum Alcohol < 0.01 % (0-0.07) 04/22/21 06:19 Blood Type A POSITIVE 04/22/21 00:00 Antibody Screen Negative 04/22/21 00:00 Active Medications - Current Medications Current Medications: Generic Name Dose Route Start Last Admin Trade Name Freq PRN Reason Stop Dose Admin Acetaminophen 650 mg 04/22/21 08:34 Acetaminophen 325 Mg Tab PO Q4H PRN Pain MILD(1-3)/Fever >100.5/REYES Aspirin 81 mg 04/24/21 10:00 Aspirin 81 Mg Tab Chew PO QDAY [facility] Atorvastatin Calcium 40 mg 04/22/21 22:00 04/22/21 23:54 Atorvastatin 40 Mg Tab PO 40 mg QHS [facility] Administration Calcium/Vitamin D 1 each 04/22/21 22:00 04/23/21 10:16 Calcium Carbonate/Vitamin D3 500 Mg-200 Unit Tab PO Not Given BID [facility] Cholecalciferol 1,000 unit 04/23/21 10:00 04/23/21 10:16 Cholecalciferol (Vit D3) 1000 Unit (25 Mcg) Tab PO Not Given QDAY [facility] Dextrose 50 ml 04/22/21 08:34 Dextrose 50% In Water (25gm) 50 Ml Syringe IV Q30MIN PRN Hypoglycemia Protocol Fluoxetine HCl 20 mg 04/23/21 10:00 04/23/21 10:16 Fluoxetine 20 Mg Cap PO Not Given QDAY [facility] Folic Acid 1 mg 04/23/21 10:00 04/23/21 10:16 Folic Acid 1 Mg Tab PO Not Given QDAY [facility] Ceftriaxone Sodium 2 gm in 100 mls @ 200 mls/hr 04/23/21 14:00 Rocephin/Ns 2 Gm/100 Ml IV Q24H [facility] Protocol Insulin Human Lispro 0 unit 04/22/21 09:00 04/22/21 18:04 Insulin Lispro 100 Unit/Ml SUB-Q Not Given Q6HR [facility] Protocol Latanoprost 1 drops 04/22/21 18:00 04/22/21 18:07 Latanoprost 0.005% Ophth Soln 2.5 Ml OU 1 drops QPM [facility] Administration Naloxone HCl 0.1 mg 04/22/21 08:34 Naloxone 0.4 Mg/1 Ml Inj IV Q2MIN PRN Res Rate </= 8 or 02 SAT < 92% Ondansetron HCl 4 mg 04/22/21 08:34 Ondansetron 4 Mg/2 Ml Inj IV Q8H PRN Nausea And Vomiting Oxycodone/Acetaminophen 1 tab 04/22/21 08:34 Oxycodone /Acetaminophen 5-325mg Tab PO Q6H PRN Pain, Moderate (4-6) Pantoprazole Sodium 40 mg 04/22/21 22:00 04/22/21 23:54 Pantoprazole 40 Mg Inj IV 40 mg BID [facility] Administration Senna 8.6 mg 04/22/21 10:00 04/23/21 10:16 Sennosides 8.6 Mg Tab PO Not Given Q12HR [facility] Sodium Chloride 10 ml 04/22/21 10:00 04/22/21 23:54 Sodium Chloride 0.9% 10 Ml Flush Syringe IV 10 ml BID [facility] Administration Sodium Chloride 10 ml 04/22/21 08:34 Sodium Chloride 0.9% 10 Ml Flush Syringe IV PRN PRN LINE FLUSH
--- NOTE | 2021-04-23 13:42 | Anesthesia Consultation ---
Anesthesia Consult and Med Hx Date of service: 04/23/21 - Airway Anesthetic Teeth Evaluation: Edentulous ROM Head & Neck: Adequate Mental/Hyoid Distance: Adequate Mallampati Class: Class II Intubation Access Assessment: Probably Good - Pre-Operative Health Status ASA Pre-Surgery Classification: ASA3 Proposed Anesthetic Plan: MAC - Pulmonary Hx Respiratory Symptoms: No COPD: Yes Hx Pneumonia: Yes (COVID PNA within the last 3 wks) Hx Sleep Apnea: Yes - Cardiovascular System Hx Hypertension: Yes Hx Coronary Artery Disease: Yes (EF 50-55%) Hx Cardia Arrhythmia: No - Central Nervous System Hx Psychiatric Problems: Yes (anxiety/depression) - Endocrine Hx Renal Disease: No Hx Liver Disease: No Hx Insulin Dependent Diabetes: Yes Hx Hypothyroidism: Yes - Hematic Hx Anemia: Yes
--- NOTE | 2021-04-23 13:43 | Anesthesia Day of Surgery ---
Anesthesia Day of Surgery - Day of Surgery Patient Examined: Yes Patient H&P Reviewed: Yes Patient is NPO: Yes
--- NOTE | 2021-04-23 13:43 | Post Anesthesia Evaluation ---
- Post Anesthesia Evaluation Patient Participated: Yes Airway Patent: Yes Stable Respiratory Function: Yes Nausea/Vomiting: No Temp > 96.8F: Yes Pain Manageable: Yes Adequeate Hydration: Yes Anesthesia Complications: No
[2021-04-23] MEDS: PANTOPRAZOLE 40 MG INJ IV SCH ×2 (13:56→22:14)
[2021-04-23] MEDS: cefTRIAXone/NS 2 GM/100 ML 2 GM/100 ML BAG IV SCH (14:02)
--- NOTE | 2021-04-23 16:35 | Vascular Lab Report ---
DUPLEX DOPPLER LOWER EXTREMITY VEINS, BILATERAL INDICATION: ELEVATED D.DIMER. TECHNIQUE: Duplex doppler imaging was performed through the veins of both lower extremities using venous tahmina jared and other maneuvers. COMPARISON: No relevant prior imaging study available. FINDINGS: Right Common femoral vein: Negative. Right Superficial femoral vein: Negative. Right Popliteal vein: Negative. Right Calf veins: Negative. Left Common femoral vein: Negative. Left Superficial femoral vein: Negative. Left Popliteal vein: Negative. Left Calf veins: Negative. Additional findings: None.. IMPRESSION: 1. No sonographic evidence for DVT in either lower extremity. Signer Name: Omer Forte MD Signed: 04/23/2021 4:31 PM Workstation Name: [id number]
--- NOTE | 2021-04-23 16:43 | Magnetic Resonance Report ---
MRI left ankle with and without contrast HISTORY: L97.509 DIABETIC LT HEEL ULCERS, PAIN PATIENT HAD MUSCLE SPASMS. PATIENT MOTION, BEST POSSIB LE EXAM. TECHNIQUE: 15 mL of Clariscan was given intravenously. COMPARISON: None FINDINGS: There is a very large wound along the plantar aspect of the heel with exposure of the larisa rity of the calcaneal body. There is associated bone marrow edema throughout essentially the entire c alcaneus and there is a rim-enhancing fluid collection anterior to this region which also exits the w ound (i.e. draining sinus) plantarly and measures 1.5 x 1.3 cm in maximal transverse dimensions and 3 .1 cm in length. There is mild enhancement and edema in the surrounding soft tissues as well. Suggest ing cellulitis/myositis. Finally, there is a tiny subcutaneous ulcer with punctate foci of gas underl ynes the midfoot. No other wound or potential abscess formation identified. No jo ann tendon tear. IMPRESSION: Plantar soft tissue wounds (one of which is large with exposed calcaneus) with osteomyeli tis involving essentially the entire calcaneus and adjacent superficial abscess formation distal to t he calcaneus along the plantar aspect of the midfoot. Signer Name: Omer Forte MD Signed: 04/23/2021 4:39 PM Workstation Name: [id number]
[2021-04-23] MEDS: LATANOPROST 0.005% OPHTH SOLN 2.5 ML OU SCH (18:00)
--- NOTE | 2021-04-23 22:59 | Cat Scan Report ---
CTA CHEST WITH CONTRAST INDICATION / CLINICAL INFORMATION: ELEVATED D.DIMER. TECHNIQUE: Axial CT images were obtained through the chest after injection of 100 mL Omnipaque 350 IV contrast. 3 plane MIP and/or 3D reconstructions were produced. All CT scans at this location are per formed using CT dose reduction for ALARA by means of automated exposure control. COMPARISON: No prior CT for comparison. Radiograph dated 04/21/21 FINDINGS: PULMONARY ARTERIES: No pulmonary emboli. THORACIC AORTA: No significant abnormality. HEART: No significant abnormality. CORONARY ARTERY CALCIFICATION: None. MEDIASTINUM / TAWANDA: No significant adenopathy. Left jugular line in the superior vena cava. PLEURA: No pleural effusion. No pneumothorax. LUNGS: Patchy bilateral pulmonary opacities have developed since the prior chest radiograph. ADDITIONAL FINDINGS: None. UPPER ABDOMEN: No acute findings. SKELETAL STRUCTURES: No significant osseous abnormality. IMPRESSION: 1. No CT evidence for pulmonary embolism. 2. Patchy bilateral pneumonia which can be seen with atypical/viral pneumonia such as Covid. Signer Name: Zenobia Jo MD Signed: 04/23/2021 10:54 PM Workstation Name: [id number]
[2021-04-24] MEDS: INSULIN LISPRO 100 UNIT/ML SUB-Q SCH ×3 (06:50→18:34)
[2021-04-24] MEDS: PANTOPRAZOLE 40 MG INJ IV SCH (10:06)
[2021-04-24] MEDS: CALCIUM CARBONATE/VITAMIN D3 500 MG-200 UNIT TAB PO SCH ×2 (10:06→22:41)
[2021-04-24] MEDS: SENNOSIDES 8.6 MG TAB PO SCH ×2 (10:06→22:41)
[2021-04-24] MEDS: CHOLECALCIFEROL (VIT D3) 1000 UNIT (25 mcg) TAB PO SCH (10:07)
[2021-04-24] MEDS: FLUoxetine 20 MG CAP PO SCH (10:07)
[2021-04-24] MEDS: FOLIC ACID 1 MG TAB PO SCH (10:07)
[2021-04-24] MEDS: ASPIRIN 81 MG TAB CHEW PO SCH (10:07)
--- NOTE | 2021-04-24 10:31 | Progress Note ---
Assessment and Plan COVID 19 infection Diabetes Chronic anemia Chronic diabetic left foot ulcer with chronic osteomyelitis Recommendations: No evident atrial fibrillation. Conservative cardiac management. Will follow intermittently. Subjective Date of service: 04/24/21 Interval history: No cardiac complaints. Objective Vital Signs Temp Pulse Resp BP Pulse Ox 04/24/21 02:00 107 H 04/23/21 22:00 96 04/23/21 21:21 99.0 F 108 H 18 116/67 97 04/23/21 17:50 98.1 F 107 H 22 148/85 95 04/23/21 16:09 96 04/23/21 13:10 102 H 16 132/76 99 04/23/21 12:54 100 H 14 101/65 100 04/23/21 12:39 98 F 104 H 14 96/61 100 04/23/21 12:13 98 F 109 H 20 116/64 96 04/23/21 11:00 98.2 F 109 H 22 132/78 97 - Physical Examination Narrative exam: Deferred due to isolation protocol. General: No Apparent Distress Extremities: Present: Other (left heel ulcer)
--- NOTE | 2021-04-24 11:02 | Electrocardiograph Report ---
[facility] Test Date: 2021-04-23 Test Time: 09:07:02 Pat Name: KAILEY FOFANA Department: Room: A369 1 Gender: F Dot Net Developer: NICOLETTE : 1955 Requested By: INDIRA GARCIA Order Number: [id number] Reading MD: Narciso Bazzi Measurements Intervals [place] Rate: 106 P: 74 HI: 152 QRS: -10 QRSD: 76 T: 101 QT: 361 QTc: 479 Interpretive Statements Sinus tachycardia Atrial premature complex Probable LVH with secondary repol abnrm Compared to ECG 04/21/2021 22:41:58 Atrial premature complex(es) now present Electronically Signed On 04-24-2021 11:01:36 EDT by Narciso Bazzi
--- NOTE | 2021-04-24 11:45 | Discharge Summary ---
Providers - Providers Date of Admission: 04/22/21 08:34 Attending physician: MADHAV MCCURDY MD 04/22/21 Consult to Case Management [CONS] Routine Services Needed at Discharge: Gasfitter Notified:: no Additional Physician Instructions: Placement 04/22/21 07:38 Consult to Physician [CONS] Stat Comment: Consulting Provider: FATMATA MORALES Physician Instructions: Reason For Exam: GI bleed 04/22/21 09:13 Consult to Physician [CONS] Routine Comment: Consulting Provider: URIAH CLARK Physician Instructions: Reason For Exam: afib with RVR 04/22/21 14:38 Consult to Wound/ET Nurse [CONS] Routine Reason For Exam: wound eval 04/22/21 14:42 Consult to Physician [CONS] Routine Comment: Consulting Provider: YADIRA ORTIZ Physician Instructions: Reason For Exam: left wound diabetic ulcer 04/23/21 15:14 Physical Therapy Evaluation and Treat [CONS] Stat Comment: Reason For Exam: eval and treat 04/23/21 15:16 Occupational Therapy Evaluate and Treat [CONS] Stat Comment: Reason For Exam: eval and treat 04/23/21 18:32 Physical Therapy Evaluation and Treat [CONS] Routine Comment: Reason For Exam: weakness Primary care physician: OXIDATION OPERATOR Hospitalization Reason for admission: Diabetic ulcer Condition: Stable Hospital course: Patient is a 65-year-old female with history of hypertension, Recent COVID 19 placed on on Xarelto, COPD, JAYJAY, history of anemia, and DM 2 with a recent left diabetic heel ulcer status post surgical debridement 1.5 weeks ago presents at the advice of her wound care nurse for inability to care for self and also unable to use her Wound vac as She says that yesterday her electricity/lights were turned off at her home. Her hx is all over the place. Per ED notes "Her nurse saw her yesterday to apply a wound VAC and told her that she needs to go to the hospital given that she cannot care for herself in her home without electricity. She says she is on or al antibiotics but does not remember the name. When prompted further, she says that she has been experiencing intermittent palpitations for the last week. For the past 2 or 3 days she has had dark tarry stools. Other than the palpitations and noticing dark tarry stools she denies any other symptoms or complaints including fever/chills, headache, vision change, neck pain, chest pain, shortness of breath, cough, diaphoresis, abdominal pain, nausea/vomiting, dysuria, back pain, focal weakness, sensory changes, or any other complaints. She denies any recent new redness to her left lower extremity wound/foot." I spoke with the home health nurse who says the patient does have history of anemia secondary to blood loss. The patient also tells me that she was started on iron pills recently. Both her know the nurse assistant service manager at home could tell me she has had an endoscopy before. Review of her records from [place] shows that she was admitted for right PICC line pain as well as not feeling well and worsening blurry vision and left leg swelling. During the hospitalization she was diagnosed with COVID-19 and was treated with steroids. Left lower extremity wound where she had a debridement and a partial calcanectomy done 03/27/2021. She was treated for hypoxic respiratory failure and also Covid related hypercoagulable state for which she was suspected to be on Xarelto for 7 days. During hospitalization the patient was noted to have D-dimers that were consistently below 3000 per the note. During her process in the ER she did report that she had some dark stools. Per the ER doctors documentation rectal exam which was done under pan devulcanizer was negative. But patient was noted to be anemic with an almost 1 g drop in hemoglobin while in the ER. We been asked to admit the patient for further evaluation and management. Diabetic foot ulcer with osteomyelitis of the left foot Diabetes mellitus with hyperglycemia Anemia questionable recent GI bleed- Gastritis-Antrum, Social issues including-no electricity at home preventing the use of wound VAC Hypertension Hypokalemia Hyperlipidemia JAYJAY unknown if patient is on CPAP at home Recent Covid pneumonia with hypoxic respiratory failure the latter now resolved Hypothyroidism Anemia of chronic inflammation Constipation Hyperlipidemia GERD MDD/anxiety Plan Patient underwent EGD FINDINGS: * No gross lesions of the entire examined duodenum * Moderate gastritis gastric antrum and body with erythema and edema. Biopsies were taken to rule out H. Pylori infection. A total of 5 biopsies were taken, 2 from the antrum, 1 from the incisura, 2 from the body. * GE junction located 35 cm from incisors * Remainder of exam unremarkable * GI recommend continuing twice daily PPI while patient remains inpatient and then discharging on pantoprazole 40 mg once daily as an outpatient and she can follow-up with us regarding her biopsy results Patient was maintained on Covid isolation protocol. During the course of the stay diabetic management was continued wound care was consulted. Xarelto was discontinued this CTA chest did not reveal any pulmonary embolism. Patient's respiratory status is also improved she is not requiring increased oxygenation. She will continue to follow podiatry outpatient. But she is unable to care for herself at home and as a result placement has been recommended. Also wound needs urgent attention continuously to prevent loss of limb. Disposition: DC/[place]-03 SNF [facility] C[facility] Final Discharge Diagnosis (Prints w/discharge instructions): Diabetic wound with poor healing the left lower extremity. Time spent for discharge: 35 minutes Core Measure Documentation - Palliative Care Palliative Care/ Comfort Measures: Not Applicable - Core Measures Any of the following diagnoses?: none Exam - Physical Exam Narrative exam: VITAL SIGNS: Reviewed. GENERAL: The patient appears normally developed, Vital signs as documented. HEAD: No signs of head trauma. EYES: Pupils are equal. Extraocular motions intact. EARS: Hearing grossly intact. MOUTH: Oropharynx is normal. NECK: No adenopathy, no JVD. CHEST: Chest with clear breath sounds bilaterally. No wheezes, rales, or rhonchi. CARDIAC: Regular rate and rhythm. S1 and S2, without murmurs, gallops, or rubs. VASCULAR: No Edema. Peripheral pulses normal and equal in all extremities. ABDOMEN: Soft, non tender and non distended. No rebound or guarding, and no masses palpated. Bowel Sounds normal. MUSCULOSKELETAL: Good range of motion of all major joints. Extremities without clubbing, cyanosis. Patient does have edema to the left lower extremity with chronic changes to the left lower extremity there is a large 5 cm wound at the base of the heel of the left foot. Dressing over the ankle. NEUROLOGIC EXAM: Alert and oriented x 3 No focal sensory or strength deficits. Speech normal. Follows commands. PSYCHIATRIC: Mood normal. SKIN: detail exam as documented in skin assessment - Constitutional Vitals: Temp Pulse Resp BP Pulse Ox 99.0 F 107 H 18 116/67 96 04/23/21 21:21 04/24/21 02:00 04/23/21 21:21 04/23/21 21:21 04/23/21 22:00 Plan Activity: advance as tolerated, fall precautions Diet: diabetic Wound: per your surgeon's advice, per wound nurse instructions Special Instructions: record daily weights, record daily BP diary, record blood sugar diary Plan of Treatment: 1. Patient can be discharged with PICC line, and be removed after anbx is completed. 2. Patient to continue abx as prescribded from [place] Follow up with: PRIMARY CARE, [Primary Care Provider] - 3-5 Days ANTWAN RESENDEZ MD [Staff Physician] - 7 Days Forms: Accompanied Note Prescriptions: Pantoprazole [Protonix TAB] 40 mg PO QDAY #30 tablet
[2021-04-24] MEDS: cefTRIAXone/NS 2 GM/100 ML 2 GM/100 ML BAG IV SCH (14:00)
--- NOTE | 2021-04-24 14:32 | Post Anesthesia Evaluation ---
- Post Anesthesia Evaluation Patient Participated: Yes Airway Patent: Yes Stable Respiratory Function: Yes Nausea/Vomiting: No Temp > 96.8F: Yes Pain Manageable: Yes Adequeate Hydration: Yes Anesthesia Complications: No Block Receding Appropriately: Not Applicable Patient on Ventilator: No
[2021-04-24] MEDS: PANTOPRAZOLE 40 MG TAB PO SCH (15:30)
[2021-04-24] MEDS: LATANOPROST 0.005% OPHTH SOLN 2.5 ML OU SCH (18:46)
--- NOTE | 2021-04-24 18:53 | Progress Note ---
Assessment and Plan - Patient Problems (1) Diabetic ulcer of left foot Current Visit: Yes Status: Acute (2) Osteomyelitis of left foot Current Visit: Yes Status: Acute Plan to address problem: 1) Pt refuses major amputation 2) 6 weeks of IV antibiotics per ID 3) Wound care 4) Strict DM management 5) Can f/u in Wound Clinic Subjective Date of service: 04/24/21 Patient Reports: Positive: no new complaints Objective Vital Signs - 12hr 04/24/21 04/24/21 10:00 12:53 Temperature 98.6 F Pulse Rate 106 H Respiratory 22 Rate Blood Pressure 149/84 O2 Sat by Pulse 98 91 Oximetry - Labs 04/23/21 03:49 04/23/21 03:49 - Imaging Additional Studies: MRI of foot noted.
[2021-04-25] MEDS: INSULIN LISPRO 100 UNIT/ML SUB-Q SCH ×3 (00:30→12:33)
[2021-04-25] MEDS: PANTOPRAZOLE 40 MG TAB PO SCH (08:01)
--- NOTE | 2021-04-25 08:59 | Progress Note ---
Assessment and Plan COVID 19 infection Diabetes, uncontrolled Chronic anemia Chronic diabetic left foot ulcer with chronic osteomyelitis Conservative cardiac management with intermittent follow up. Subjective Date of service: 04/25/21 Interval history: No interval cardiac changes. Objective Vital Signs Temp Pulse Resp BP Pulse Ox 04/25/21 05:39 98.1 F 101 H 18 139/78 93 04/25/21 04:00 100 H 04/24/21 22:00 96 04/24/21 21:51 98.1 F 100 H 18 123/78 96 04/24/21 20:00 106 H 04/24/21 17:31 98.2 F 106 H 18 137/77 92 04/24/21 12:53 98.6 F 106 H 22 149/84 91 04/24/21 10:00 98 - Physical Examination Narrative exam: Deferred due to isolation protocol. General: No Apparent Distress Extremities: Present: Other (left heel ulcer)
[2021-04-25] MEDS: CALCIUM CARBONATE/VITAMIN D3 500 MG-200 UNIT TAB PO SCH (10:52)
[2021-04-25] MEDS: ASPIRIN 81 MG TAB CHEW PO SCH (10:52)
[2021-04-25] MEDS: CHOLECALCIFEROL (VIT D3) 1000 UNIT (25 mcg) TAB PO SCH (10:52)
[2021-04-25] MEDS: SENNOSIDES 8.6 MG TAB PO SCH (10:52)
[2021-04-25] MEDS: FOLIC ACID 1 MG TAB PO SCH (10:52)
[2021-04-25] MEDS: FLUoxetine 20 MG CAP PO SCH (10:52)
--- NOTE | 2021-04-25 13:31 | Discharge Summary ---
Providers - Providers Date of Admission: 04/22/21 08:34 Attending physician: MADHAV MCCURDY MD 04/22/21 Consult to Case Management [CONS] Routine Services Needed at Discharge: Vendor Representatives Notified:: no Additional Physician Instructions: Placement 04/22/21 07:38 Consult to Physician [CONS] Stat Comment: Consulting Provider: FATMATA MORALES Physician Instructions: Reason For Exam: GI bleed 04/22/21 09:13 Consult to Physician [CONS] Routine Comment: Consulting Provider: URIAH CLARK Physician Instructions: Reason For Exam: afib with RVR 04/22/21 14:38 Consult to Wound/ET Nurse [CONS] Routine Reason For Exam: wound eval 04/22/21 14:42 Consult to Physician [CONS] Routine Comment: Consulting Provider: YADIRA ORTIZ Physician Instructions: Reason For Exam: left wound diabetic ulcer 04/23/21 15:14 Physical Therapy Evaluation and Treat [CONS] Stat Comment: Reason For Exam: eval and treat 04/23/21 15:16 Occupational Therapy Evaluate and Treat [CONS] Stat Comment: Reason For Exam: eval and treat 04/23/21 18:32 Physical Therapy Evaluation and Treat [CONS] Routine Comment: Reason For Exam: weakness 04/24/21 11:47 Consult to Case Management [CONS] Routine Services Needed at Discharge: Vendor Representatives Notified:: no Additional Physician Instructions: Patient has 6 weeks antibotics ordered from [facility] THAT A HOME HEALTH TEAM WAS TAKEN CARE OFF. Can this be transfe red and continued at the SNF Primary care physician: PIECE DYE WORKER Hospitalization Reason for admission: Diabetic foot ulcer Condition: Stable Hospital course: Patient is a 65-year-old female with history of hypertension, Recent COVID 19 placed on on Xarelto, COPD, JAYJAY, history of anemia, and DM 2 with a recent left diabetic heel ulcer status post surgical debridement 1.5 weeks ago presents at the advice of her wound care nurse for inability to care for self and also unab le to use her Wound vac as She says that yesterday her electricity/lights were turned off at her home. Her hx is all over the place. Per ED notes "Her nurse saw her yesterday to apply a wound VAC and told her that she needs to go to the hospital given that she cannot care for herself in her home without electricity. She says she is on oral antibiotics but does not remember the name. When prompted further, she says that she has been experiencing intermittent palpitations for the last week. For the past 2 or 3 days she has had dark tarry stools. Other than the palpitations and noticing dark tarry stools she denies any other symptoms or complaints including fever/chills, headache, vision change, neck pain, chest pain, shortness of breath, cough, diaphoresis, abdominal pain, nausea/vomiting, dysuria, back pain, focal weakness, sensory changes, or any other complaints. She denies any recent new redness to her left lower extremity wound/foot." I spoke with the home health nurse who says the patient does have history of anemia secondary to blood loss. The patient also tells me that she was started on iron pills recently. Both her know the nurse general office assistant at home could tell me she has had an endoscopy before. Review of her records from [place] shows that she was admitted for right PICC line pain as well as not feeling well and worsening blurry vision and left leg swelling. During the hospitalization she was diagnosed with COVID-19 and was treated with steroids. Left lower extremity wound where she had a debridement and a partial calcanectomy done 03/27/2021. She was treated for hypoxic respiratory failure and also Covid related hypercoagulable state for which she was suspected to be on Xarelto for 7 days. During hospitalization the patient was noted to have D-dimers that were consistently below 3000 per the note. During her process in the ER she did report that she had some dark stools. Per the ER doctors documentation rectal exam which was done under street cleaning equipment operator was negative. But patient was noted to be anemic with an almost 1 g drop in hemoglobin while in the ER. We been asked to admit the patient for further evaluation and management. Diabetic foot ulcer with osteomyelitis of the left foot Diabetes mellitus with hyperglycemia Anemia questionable recent GI bleed- Gastritis-Antrum, Social issues including-no electricity at home preventing the use of wound VAC Hypertension Hypokalemia Hyperlipidemia JAYJAY unknown if patient is on CPAP at home Recent Covid pneumonia with hypoxic respiratory failure the latter now resolved Hypothyroidism Anemia of chronic inflammation Constipation Hyperlipidemia GERD MDD/anxiety Plan Patient underwent EGD FINDINGS: * No gross lesions of the entire examined duodenum * Moderate gastritis gastric antrum and body with erythema and edema. Biopsies were taken to rule out H. Pylori infection. A total of 5 biopsies were taken, 2 from the antrum, 1 from the incisura, 2 from the body. * GE junction located 35 cm from incisors * Remainder of exam unremarkable * GI recommend continuing twice daily PPI while patient remains inpatient and then discharging on pantoprazole 40 mg once daily as an outpatient and she can follow-up with us regarding her biopsy results Patient was maintained on Covid isolation protocol. During the course of the stay diabetic management was continued wound care was consulted. Xarelto was discontinued this CTA chest did not reveal any pulmonary embolism. Patient's respiratory status is also improved she is not requiring increased oxygenation. She will continue to follow podiatry outpatient. But she is unable to care for herself at home and as a result placement has been recommended. Also wound needs urgent attention continuously to prevent loss of limb. Patient will continue and complete ceftriaxone though will complete on 05/12/2021 orders written. Disposition: DC/[place]-03 SNF [facility] C[facility] Final Discharge Diagnosis (Prints w/discharge instructions): Infected diabetic foot ulcer left foot Time spent for discharge: 35 minutes Core Measure Documentation - Palliative Care Palliative Care/ Comfort Measures: Not Applicable - Core Measures Any of the following diagnoses?: none Exam - Physical Exam Narrative exam: VITAL SIGNS: Reviewed. GENERAL: The patient appears normally developed, Vital signs as documented. HEAD: No signs of head trauma. EYES: Pupils are equal. Extraocular motions intact. EARS: Hearing grossly intact. MOUTH: Oropharynx is normal. NECK: No adenopathy, no JVD. CHEST: Chest with clear breath sounds bilaterally. No wheezes, rales, or rhonchi. CARDIAC: Regular rate and rhythm. S1 and S2, without murmurs, gallops, or rubs. VASCULAR: No Edema. Peripheral pulses normal and equal in all extremities. ABDOMEN: Soft, non tender and non distended. No rebound or guarding, and no masses palpated. Bowel Sounds normal. MUSCULOSKELETAL: Good range of motion of all major joints. Extremities without clubbing, cyanosis. Patient does have edema to the left lower extremity with chronic changes to the left lower extremity there is a large 5 cm wound at the base of the heel of the left foot. Dressing over the ankle. NEUROLOGIC EXAM: Alert and oriented x 3 No focal sensory or strength deficits. Speech normal. Follows commands. PSYCHIATRIC: Mood normal. SKIN: detail exam as documented in skin assessment - Constitutional Vitals: Temp Pulse Resp BP Pulse Ox 98.1 F 101 H 18 139/78 93 04/25/21 05:39 04/25/21 05:39 04/25/21 05:39 04/25/21 05:39 04/25/21 05:39 Plan Activity: advance as tolerated, fall precautions Diet: diabetic Special Instructions: record daily weights, record daily BP diary, record blood sugar diary Plan of Treatment: 1. Patient can be discharged with PICC line, and be removed after anbx is completed. 2. Patient to continue abx as prescribded from [place] 3. Must continue wound VAC Follow up with: ANTWAN RESENDEZ MD [Staff Physician] - 7 Days PRIMARY CARE, [Primary Care Provider] - 3-5 Days Forms: Accompanied Note Prescriptions: Pantoprazole [Protonix TAB] 40 mg PO QDAY #30 tablet cefTRIAXone/NS 2 GM/100 ML [Rocephin/Ns 2 gm/100 ml] 2 gm IV Q24HR 15 Days #15 piggyback
[2021-04-25 13:52] VITALS: BP 117/73
[2021-04-25] MEDS: cefTRIAXone/NS 2 GM/100 ML 2 GM/100 ML BAG IV SCH (13:58)
== END 2021-04-25 15:30 ==
LOC: EDBD → ED 20:06 → 4A 04-22 08:34 → 3A 04-22 15:12
PROVIDERS: ADMIT Internal Medicine; ATTEND Internal Medicine
DX: U07.1 COVID-19 (principal); J12.82 Pneumonia due to coronavirus disease 2019; J96.91 Respiratory failure, unspecified with hypoxia; E11.621 Type 2 diabetes mellitus with foot ulcer; L97.529 Non-pressure chronic ulcer of other part of left foot with unspecified severity; K92.2 Gastrointestinal hemorrhage, unspecified; M86.9 Osteomyelitis, unspecified; E11.65 Type 2 diabetes mellitus with hyperglycemia; D64.9 Anemia, unspecified; I11.0 Hypertensive heart disease with heart failure; I50.9 Heart failure, unspecified; E11.9 Type 2 diabetes mellitus without complications; E78.5 Hyperlipidemia, unspecified; G47.33 Obstructive sleep apnea (adult) (pediatric); E03.9 Hypothyroidism, unspecified; K59.00 Constipation, unspecified; K21.9 Gastro-esophageal reflux disease without esophagitis; F32.9 Major depressive disorder, single episode, unspecified; I48.91 Unspecified atrial fibrillation; I25.10 Atherosclerotic heart disease of native coronary artery without angina pectoris; J44.9 Chronic obstructive pulmonary disease, unspecified; Z79.899 Other long term (current) drug therapy; Z98.890 Other specified postprocedural states; Z87.891 Personal history of nicotine dependence
CPT/HCPCS: 36415; 43239; 71046; 71275; 73720; 80053; 80061; 82728; 82947; 82962; 83615; 83690; 83735; 84145; 84484; 85014; 85018; 85025; 85379; 85610; 85730; 86140; 86850; 86900; 86901; 88305; 88342; 93005; 93926; 93970; 96365; 96366; 96367; 96375; 96376; 97112; 97162; 97166; 97530; 99291; A9270; A9575; C9113; G0378; J0696; J2704; J3370; J7030; J7040; J7050; Q9967; U0003; 80320; G0480; J1815

== ENCOUNTER 2022-02-20 17:42 | Emergency (ER) | payer MEDICARE ==
--- NOTE | 2022-02-20 18:33 | Emergency Department Report ---
ED General Adult HPI - General Chief complaint: Hyperglycemia Stated complaint: ELEVATED BLOOD SUGAR PUI?: No Time Seen by Provider: 02/20/22 18:09 Source: patient Mode of arrival: Stretcher Limitations: No Limitations - History of Present Illness Initial comments: Patient is a 66-year-old female that presents emergency room for for hyperglycemia. Patient states she has had hyperglycemia for many years. Patient states she checked her sugar at home and it was 526. Patient brought in by EMS. Report received from EMS. EMS states the patient's blood sugar was 449 after arrival here to the hospital. EMS did not give the patient any medications or IV fluids. Patient denies pain. Patient denies chest pain. Patient denies shortness of breath. Patient denies any new symptoms. Patient states she always has polyuria and polydipsia. Patient states that is unchanged though. Patient states she takes 70 units of Lantus at night. Patient denies recent travel. Patient denies recent international travel. Patient denies exposure to the novel coronavirus. Patient denies sick contacts. Patient denies fever and chills. Patient denies cough. Patient denies diarrhea. Patient denies coming in contact with anybody with symptoms of the novel coronavirus. -: Sudden Severity scale (0 -10): 0 Consistency: constant Improves with: medication, other (Water and medications) Worsens with: eating Associated Symptoms: denies other symptoms. denies: confusion, chest pain, cough, diaphoresis, fever/chills, headaches, loss of appetite, malaise, nausea/vomiting, rash, seizure, shortness of breath, syncope, weakness - Related Data Previous Rx's Medication Instructions Recorded Last Taken Type Aspirin [Aspirin BABY CHEW TAB] 81 mg PO QDAY tab.chew 04/24/21 Unknown Rx AtorvaSTATin [Lipitor] 40 mg PO QHS tablet 04/24/21 Unknown Rx Calc Carb/Vit D 500 mg-200 Uni 1 each PO BID tablet 04/24/21 Unknown Rx [Oysco D 500 mg-200 Unit] Cholecalciferol Vit D3 [Vitamin D3 1,000 unit PO QDAY tablet 04/24/21 Unknown Rx 1,000 UNIT TAB] FLUoxetine [PROzac] 20 mg PO QDAY capsule 04/24/21 Unknown Rx Folic Acid [Folvite] 1 mg PO QDAY tablet 04/24/21 Unknown Rx Latanoprost 0.005% 1 drops OU QPM bottle 04/24/21 Unknown Rx Pantoprazole [Protonix TAB] 40 mg PO QDAY #30 tablet 04/24/21 Unknown Rx Sennosides Tab [Senokot] 8.6 mg PO Q12HR tablet 04/24/21 Unknown Rx cefTRIAXone/NS 2 GM/100 ML 2 gm IV Q24HR 15 Days #15 piggyback 04/25/21 Unknown Rx [Rocephin/Ns 2 gm/100 ml] Ciprofloxacin HCl [Ciprofloxacin 500 mg PO BID 10 Days #20 tab 02/20/22 Unknown Rx TAB] Allergies Allergy/AdvReac Type Severity Reaction Status Date / Time bees Allergy Unknown Uncoded 02/20/22 18:02 ants AdvReac Unknown Uncoded 02/20/22 18:02 ED Review of Systems ROS: Stated complaint: ELEVATED BLOOD SUGAR Other details as noted in HPI Constitutional: denies: chills, fever Eyes: denies: eye pain, eye discharge, vision change ENT: denies: ear pain, throat pain Respiratory: denies: cough, shortness of breath, wheezing Cardiovascular: denies: chest pain, palpitations Endocrine: no symptoms reported Gastrointestinal: denies: abdominal pain, nausea, diarrhea Genitourinary: denies: urgency, dysuria, discharge Musculoskeletal: denies: back pain, joint swelling, arthralgia Skin: denies: rash, lesions Neurological: denies: headache, weakness, paresthesias Psychiatric: denies: anxiety, depression Hematological/Lymphatic: denies: easy bleeding, easy bruising ED Past Medical Hx - Past Medical History Previous Medical History?: Yes Hx Hypertension: Yes Hx Congestive Heart Failure: No Hx Diabetes: Yes Hx Liver Disease: No Hx Renal Disease: No Hx Asthma: No Hx COPD: Yes Hx HIV: No Additional medical history: Afib on xarelto, Left diabetic skin ulcer - Surgical History Past Surgical History?: Yes Additional Surgical History: L foot - Family History Family history: no significant - Social History Smoking Status: Never Smoker Substance Use Type: None - Medications Home Medications: Home Medications Medication Instructions Recorded Confirmed Last Taken Type Aspirin [Aspirin BABY CHEW TAB] 81 mg PO QDAY tab.chew 04/24/21 Unknown Rx AtorvaSTATin [Lipitor] 40 mg PO QHS tablet 04/24/21 Unknown Rx Calc Carb/Vit D 500 mg-200 Uni 1 each PO BID tablet 04/24/21 Unknown Rx [Oysco D 500 mg-200 Unit] Cholecalciferol Vit D3 [Vitamin D3 1,000 unit PO QDAY tablet 04/24/21 Unknown Rx 1,000 UNIT TAB] FLUoxetine [PROzac] 20 mg PO QDAY capsule 04/24/21 Unknown Rx Folic Acid [Folvite] 1 mg PO QDAY tablet 04/24/21 Unknown Rx Latanoprost 0.005% 1 drops OU QPM bottle 04/24/21 Unknown Rx Pantoprazole [Protonix TAB] 40 mg PO QDAY #30 tablet 04/24/21 Unknown Rx Sennosides Tab [Senokot] 8.6 mg PO Q12HR tablet 04/24/21 Unknown Rx cefTRIAXone/NS 2 GM/100 ML 2 gm IV Q24HR 15 Days #15 piggyback 04/25/21 Unknown Rx [Rocephin/Ns 2 gm/100 ml] Ciprofloxacin HCl [Ciprofloxacin 500 mg PO BID 10 Days #20 tab 02/20/22 Unknown Rx TAB] ED Physical Exam - General Limitations: No Limitations General appearance: alert, in no apparent distress - Head Head exam: Present: atraumatic, normocephalic - Eye Eye exam: Present: normal appearance - ENT ENT exam: Present: mucous membranes moist - Neck Neck exam: Present: normal inspection - Respiratory Respiratory exam: Present: normal lung sounds bilaterally. Absent: respiratory distress - Cardiovascular Cardiovascular Exam: Present: regular rate, normal rhythm. Absent: systolic murmur, diastolic murmur, rubs, gallop - GI/Abdominal GI/Abdominal exam: Present: soft, normal bowel sounds - Extremities Exam Extremities exam: Present: normal inspection - Back Exam Back exam: Present: normal inspection - Neurological Exam Neurological exam: Present: alert, oriented X3 - Psychiatric Psychiatric exam: Present: normal affect, normal mood - Skin Skin exam: Present: warm, dry, intact, normal color. Absent: rash ED Course Vital Signs 02/20/22 02/20/22 02/20/22 17:52 20:19 20:31 Temperature 98.1 F 98.0 F Pulse Rate 98 H 84 Respiratory 18 16 Rate Blood Pressure 119/77 100/76 [Left] O2 Sat by Pulse 98 100 100 Oximetry 02/20/22 23:27 Temperature Pulse Rate 81 Respiratory 16 Rate Blood Pressure 100/76 [Left] O2 Sat by Pulse 98 Oximetry - Reevaluation(s) Reevaluation #1: Sugar still high. Patient will be given 15 units of insulin. Patient is already received 12 units. 02/20/22 21:43 Reevaluation #2: Patient sugar still high. Patient will be given 20 units of regular insulin. Patient will be then ready for discharge. Patient states she has sensations of a UTI. Patient will have a UA prior to discharge 02/20/22 22:43 Reevaluation #3: Patient's blood sugar still elevated however the patient is chronically elevated. Patient has received multiple units of insulin. Patient denies polyuria and polydipsia at this time. Patient has a UA that came back as UTI. Patient will be treated accordingly. I discussed all results and clinical findings with patient. I discussed plan of care with patient. Patient agrees with plan of care. Patient is stable for discharge. Patient will be discharged home. Patient given discharge instructions. Patient voiced understanding of discharge instructions. 02/20/22 23:32 ED Medical Decision Making - Lab Data Result diagrams: 02/20/22 18:40 02/20/22 18:40 - Medical Decision Making Patient is a 66-year-old female that presents emergency room for hyperglycemia. Patient has long history of uncontrolled diabetes. Patient states lately her diabetes been difficult to control. Patient had labs done which were essentially unremarkable except for hyperglycemia. Patient is not in DKA. Patient given fluids and multiple units of insulin. Patient still remains elevated. Patient require more aggressive outpatient treatment of her diabetes. Patient had a UA done which shows a UTI. Patient will be treated with antibiotics. Patient is stable for discharge. Patient not require any further emergency medical services. Patient not require inpatient services. I discussed all results and clinical findings with patient. I discussed plan of care with patient. Patient agrees with plan of care. Patient is stable for discharge. Patient will be discharged home. Patient given discharge instructions. Patient voiced understanding of discharge instructions. - Differential Diagnosis Hyperglycemia, DKA, HHS, UTI, uncontrolled diabetes Critical care attestation.: If time is entered above; I have spent that time in minutes in the direct care of this critically ill patient, excluding procedure time. ED Disposition Clinical Impression: Hyperglycemia UTI (urinary tract infection) Qualifiers: Urinary tract infection type: acute cystitis Hematuria presence: with hematuria Qualified Code(s): N30.01 - Acute cystitis with hematuria Disposition: 01 HOME / SELF CARE / HOMELESS Is pt being admited?: No Does the pt Need Aspirin: No Condition: Stable Instructions: Preventing Type 2 Diabetes Mellitus, Hyperglycemia, [id number], Urinary Tract Infection, Adult, Blood Glucose Monitoring, Adult Additional Instructions: Patient to follow-up with primary care in 2 to 3 days. Patient to follow-up with academic intern in 2 to 3 days. Patient to rest. Patient to increase water. Patient to eat a diabetic diet. Patient to take Tylenol or ibuprofen as needed for pain. Patient continue all medications. Patient to take meds as directed. Patient to return to the ER if condition worsens, changes or new symptoms arise. Prescriptions: Ciprofloxacin HCl [Ciprofloxacin TAB] 500 mg PO BID 10 Days #20 tab Referrals: LAMAR DALTON MD [Primary Care Provider] - 2-3 Days Time of Disposition: 23:37
[2022-02-20] MEDS ORDERED: SODIUM CHLORIDE 0.9% 1000 ML 1,000 ML IV ONE ×2 (19:34→20:05)
[2022-02-20 19:37] LABS: Hematocrit 36.6 % (30.3-42.9); Hemoglobin 12.5 gm/dl (10.1-14.3); Mean Corpuscular HGB Conc 34 % (30-34); Mean Corpuscular Volume 99 fl (79-97); Platelet Count 295 K/mm3 (140-440); Red Blood Count 3.72 M/mm3 (3.65-5.03); Red Cell Distribution Width 15.2 % (13.2-15.2)
[2022-02-20 19:56] LABS: Albumin 3.7 g/dL (3.9-5); BUN/Creatinine Ratio 13; Blood Urea Nitrogen 13 mg/dL (7-17); Hemolysis Index 11
[2022-02-20 20:10] LABS: Alanine Aminotransferase < 5 units/L (7-56)
[2022-02-20 20:28] VITALS: BP 100/76
[2022-02-20] MEDS ORDERED: INSULIN REGULAR, HUMAN 100 UNITS/1 ML IV ONE ×3 (20:59→22:41)
[2022-02-20 23:27] LABS: Bilirubin,Urine NEG (Negative); Blood,Urine MOD (Negative); Color,Urine Yellow (Yellow); Mucus,Urine FEW /HPF; Urobilinogen,Urine < 2.0 mg/dL (<2.0)
[2022-02-20 23:28] LABS: WBC,Urine > 182.0 /HPF (0.0-6.0)
== END 2022-02-21 17:47 | disposition home or self-care (01) ==
LOC: ED 17:42
DX: E11.65 Type 2 diabetes mellitus with hyperglycemia (principal); N39.0 Urinary tract infection, site not specified; I10 Essential (primary) hypertension; Z87.892 Personal history of anaphylaxis
CPT/HCPCS: 36415; 80053; 81001; 82805; 82962; 85027; 96361; 96374; 96376; 99284; J7030; Q9967; J1815